=== PATIENT | female | born 1945 | race Caucasian/White ===

== ENCOUNTER 2019-10-21 15:44 | Emergency (ER) | payer OTHER ==
[2019-10-21 16:55] LABS: Absolute Lymphocytes (CBC) 1.2 K/uL (0.7-4.9); Basophils % 0.8 % (0-1.3); Hematocrit 39.5 % (36.0-45.0); MPV 7.8 fL (7.6-11.3); RBC Red Blood Cell Count 4.62 M/uL (3.86-4.86)
[2019-10-21] MEDS ORDERED: MORPHINE 4 MG/ML SYR ONE (16:57)
[2019-10-21] MEDS ORDERED: ONDANSETRON 4 MG/2 ML VIAL ONE (16:57)
[2019-10-21] MEDS ORDERED: NA CHLORIDE 0.9% 500 ML ONE (16:57)
[2019-10-21 17:08] LABS: Albumin 3.6 g/dL (3.4-5.0); Bilirubin Direct 0.1 mg/dL (0-0.2); Bilirubin Total 0.6 mg/dL (0.2-1.0); Potassium 4.2 mmol/L (3.5-5.1); Protein, Total 6.8 g/dL (6.4-8.2)
[2019-10-21] MEDS ORDERED: METHYLPREDNISOLONE 125 MG INJ ONE (17:20)
[2019-10-21] MEDS ORDERED: DIPHENHYDRAMINE 50 MG/ML VIAL ONE (17:21)
--- NOTE | 2019-10-21 18:16 | RAD REPORT ---
EXAM DESCRIPTION: CT - Abdomen Pelvis W Contrast - 10/21/2019 5:44 pm CLINICAL HISTORY: Abdominal pain COMPARISON: none. TECHNIQUE: Computed axial tomography of the abdomen pelvis was obtained. 100 cc Isovue-300 was admin istered intravenously. Oral contrast was not requested which limits evaluation of bowel. All CT scans are performed using dose optimization technique as appropriate and may include automated exposure control or mA/KV adjustment according to patient size. FINDINGS: Small gallstones are suspected. Gallbladder wall thickening is not noted 6 x 2.5 x 5 centimeter heterogeneous structure is present within the left rectus abdominis muscle wit hin the upper abdomen The liver, spleen, pancreas, and adrenals appear unremarkable. 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 Left kidney is unremarkabl e. Diverticula stem from the colon. Minimal stranding adjacent to the sigmoid colon Ill-defined areas of increased density are present within the subcutaneous tissues of the pelvis with small amount of air. Ventral hernia repair is noted IMPRESSION: Ventral hernia repair. Ill-defined increased density and small amount of air within the anterior subcutaneous tissue of the pelvis likely inflammation 6 x 2.5 x 5 centimeter heterogeneous structure is present within the left rectus abdominis muscle wit hin the upper abdomen probably a hematoma. Follow-up ultrasound in 1 week would be helpful to assess stability/resolution Probable cholelithiasis without cholecystitis Minimal sigmoid diverticulitis
--- NOTE | 2019-10-21 18:45 | ER ---
Nurse's Notes [facility] Name: Teri Bennett Age: 74 yrs Sex: Female : 1945 Arrival Date: 10/21/2019 Time: 15:54 Bed 5 Private MD: Diagnosis: Diverticulitis of large intestine without perforation or abscess without bleeding;Hematoma left rectus abdominus mucle Presentation: 10/21 16:02 Presenting complaint: Had hernia repair 10/10, c/o left upper abdominal pain x 2 days. hb Transition of care: patient was not received from another setting of care. Onset of symptoms was October 20, 2019. Risk Assessment: Do you want to hurt yourself or someone else? Patient reports no desire to harm self or others. Initial Sepsis Screen: Does the patient meet any 2 criteria? No. Patient's initial sepsis screen is negative. Does the patient have a suspected source of infection? No. Patient's initial sepsis screen is negative. Care prior to arrival: None. 16:02 Method Of Arrival: Ambulatory hb 16:02 Acuity: SHERITA 3 hb Triage Assessment: 16:10 General: Appears in no apparent distress. uncomfortable, Behavior is cooperative, bp appropriate for age, anxious. Pain: Complains of pain in left upper quadrant. EENT: No deficits noted. Neuro: No deficits noted. Cardiovascular: No deficits noted. Respiratory: No deficits noted. GI: Reports upper abdominal pain. : No signs and/or symptoms were reported regarding the genitourinary system. Derm: No deficits noted. Musculoskeletal: No deficits noted. Historical: - Allergies: 16:02 Aspirin; hb 16:02 PENICILLINS; hb 16:02 Macrobid; hb 16:02 Sulfa (Sulfonamide Antibiotics); hb - PSHx: 16:02 Hernia repair; Veins - legs; Hysterectomy; Wrist - left; hand - Left; Uvula; hb Tonsillectomy; - Immunization history:: Adult Immunizations up to date. - Social history:: Smoking status: Patient/guardian denies using tobacco. - Ebola Screening: : No symptoms or risks identified at this time. Screenin:25 Abuse screen: Denies threats or abuse. Denies injuries from another. Nutritional bp screening: No deficits noted. Tuberculosis screening: No symptoms or risk factors identified. Fall Risk None identified. Assessment: 16:10 General: SEE TRIAGE NOTE. bp 17:00 Reassessment: CT PENDING, IVF INFUSING. bp 18:04 Reassessment: PT RETURNED FROM CT. bp 19:00 Reassessment: D/C ON HOLD FOR ABX COMPLETION. PRESCRIPTIONS GIVEN TO FAMILY IN ADVANCE bp OF D/C. 19:28 Reassessment: PT D/C HOME AMBULATORY WITH FAMILY, DX WITH DIVERTICULITIS. bp Vital Signs: 16:00 BP 116 / 81; Pulse 83; Resp 16; Temp 98.2; Pulse Ox 100% on R/A; Weight 88.45 kg; hb Height 5 ft. 5 in. (165.10 cm); Pain 8/10; 17:00 BP 112 / 57; Pulse 53; Resp 18; Pulse Ox 100% ; bp 18:00 BP 120 / 65; Pulse 59; Resp 16; Pulse Ox 99% ; bp 19:00 BP 112 / 64; Pulse 50; Resp 16; Temp 98.3; Pulse Ox 95% ; bp 16:00 Body Mass Index 32.45 (88.45 kg, 165.10 cm) hb ED Course: 15:54 Patient arrived in ED. am2 16:01 Arm band placed on. hb 16:03 Triage completed. hb 16:03 Karan Coley NP is PHCP. pm1 16:03 Jhonny Lau MD is Attending Physician. pm1 16:13 Parker Poole, CARLEEN is Primary Nurse. bp 16:22 Radiology exam delayed due to lab results not completed at this time. (BUN/Creatinine). mw3 16:25 Patient has correct armband on for positive identification. Bed in low position. Call bp light in reach. Side rails up X2. 16:39 Initial lab(s) drawn, by wv, sent to lab. Inserted saline lock: 20 gauge in left tr5 antecubital area, using aseptic technique. 17:44 CT Abd/Pelvis - IV Contrast Only In Process Unspecified. EDMS 19:29 No provider procedures requiring assistance completed. IV discontinued, intact, bp bleeding controlled, No redness/swelling at site. Pressure dressing applied. Administered Medications: 17:10 Drug: NS 0.9% 500 ml Route: IV; Rate: bolus; Site: left antecubital; tr5 19:21 Follow up: IV Status: Completed infusion; IV Intake: 500ml bp 17:10 Drug: morphine 4 mg {Note: RASS:0.} Route: IVP; Site: left antecubital; tr5 19:20 Follow up: Response: Pain is decreased bp 17:11 Drug: Zofran 4 mg Route: IVP; Site: left antecubital; tr5 19:21 Follow up: Response: No adverse reaction bp 17:23 Drug: SOLU-Medrol 125 mg Route: IVP; Site: left antecubital; tr5 19:21 Follow up: Response: No adverse reaction bp 17:24 Drug: Benadryl 12.5 mg Route: IVP; Site: left antecubital; tr5 19:21 Follow up: Response: No adverse reaction bp 19:00 Drug: LevaQUIN 750 mg Route: PO; bp 19:30 Follow up: Response: No adverse reaction bp 19:00 Drug: Flagyl 500 mg Volume: 100 ml; Route: IVPB; Rate: 200 ml/hr; Infused Over: 30 bp mins; Site: left antecubital; 19:30 Follow up: IV Status: Completed infusion; IV Intake: 100ml bp 19:00 Drug: morphine 2 mg Route: IVP; Site: left antecubital; bp 19:30 Follow up: Response: Pain is decreased bp Intake: 19:21 IV: 500ml; Total: 500ml. bp 19:30 IV: 100ml; Total: 600ml. bp Outcome: 18:45 Discharge ordered by MD. pm1 19:29 Discharged to home ambulatory, with family. bp 19:29 Condition: stable 19:29 Discharge instructions given to patient, Instructed on discharge instructions, follow up and referral plans. medication usage, Demonstrated understanding of instructions, follow-up care, medications, Prescriptions given X 3. 19:38 Patient left the ED. bp Signatures: Dispatcher [employer] EDMS Karan Coley NP MANAGER OF SALES pm1 Cindy Grant RN RN hb Moreno, Amanda am2 Parker Poole RN RN bp Willis, Michelle mw3 Fidel Salinas RN RN tr5
--- NOTE | 2019-10-21 18:46 | EDPHYS ---
Physician Documentation [facility] Name: Teri Bennett Age: 74 yrs Sex: Female : 1945 Arrival Date: 10/21/2019 Time: 15:54 Bed 5 Private MD: ED Physician Jhonny Lau HPI: 10/21 16:39 This 74 yrs old Female presents to ER via Ambulatory with complaints of pm1 Abdominal Pain. 16:39 The patient presents with abdominal pain in the left upper quadrant, in the left lower pm1 quadrant. Onset: The symptoms/episode began/occurred 2 day(s) ago. The symptoms do not radiate. Associated signs and symptoms: Pertinent negatives: nausea, vomiting, and diarrhea, chest pain, constipation, dysuria, fever, shortness of breath. The symptoms are described as sharp. Modifying factors: the symptoms are aggravated by coughing, touching the area. Severity of pain: in the emergency department the pain is actually worse. The patient has not experienced similar symptoms in the past. The patient has been recently seen by a physician: Laproscopic hernia repair on 10/10 in [place], [place]. Historical: - Allergies: 16:02 Aspirin; hb 16:02 PENICILLINS; hb 16:02 Macrobid; hb 16:02 Sulfa (Sulfonamide Antibiotics); hb - PSHx: 16:02 Hernia repair; Veins - legs; Hysterectomy; Wrist - left; hand - Left; Uvula; hb Tonsillectomy; - Immunization history:: Adult Immunizations up to date. - Social history:: Smoking status: Patient/guardian denies using tobacco. - Ebola Screening: : No symptoms or risks identified at this time. ROS: 16:40 Constitutional: Negative for fever, chills, and weight loss, Eyes: Negative for injury, pm1 pain, redness, and discharge, ENT: Negative for injury, pain, and discharge, Neck: Negative for injury, pain, and swelling, Cardiovascular: Negative for chest pain, palpitations, and edema, Respiratory: Negative for shortness of breath, cough, wheezing, and pleuritic chest pain. 16:40 Back: Negative for injury and pain, : Negative for injury, bleeding, discharge, and swelling, MS/Extremity: Negative for injury and deformity, Skin: Negative for injury, rash, and discoloration, Neuro: Negative for headache, weakness, numbness, tingling, and seizure. 16:40 Abdomen/GI: Positive for abdominal pain, Negative for nausea, vomiting, and diarrhea, constipation. Exam: 16:40 Constitutional: This is a well developed, well nourished patient who is awake, alert, pm1 and in no acute distress. Head/Face: Normocephalic, atraumatic. Neck: Trachea midline, no thyromegaly or masses palpated, and no cervical lymphadenopathy. Supple, full range of motion without nuchal rigidity, or vertebral point tenderness. No Meningismus. Chest/axilla: Normal chest wall appearance and motion. Nontender with no deformity. No lesions are appreciated. Cardiovascular: Regular rate and rhythm with a normal S1 and S2. No gallops, murmurs, or rubs. Normal PMI, no JVD. No pulse deficits. Respiratory: Lungs have equal breath sounds bilaterally, clear to auscultation and percussion. No rales, rhonchi or wheezes noted. No increased work of breathing, no retractions or nasal flaring. 16:40 Back: No spinal tenderness. No costovertebral tenderness. Full range of motion. Skin: Warm, dry with normal turgor. Normal color with no rashes, no lesions, and no evidence of cellulitis. 16:40 MS/ Extremity: Pulses equal, no cyanosis. Neurovascular intact. Full, normal range of motion. 16:40 Abdomen/GI: Inspection: obese Bowel sounds: normal, Palpation: soft, mild abdominal tenderness, in the left upper quadrant and left lower quadrant, mass, is not appreciated, rebound tenderness, is not appreciated. 16:40 Neuro: Orientation: is normal, Motor: is normal, moves all fours. Vital Signs: 16:00 BP 116 / 81; Pulse 83; Resp 16; Temp 98.2; Pulse Ox 100% on R/A; Weight 88.45 kg; hb Height 5 ft. 5 in. (165.10 cm); Pain 8/10; 17:00 BP 112 / 57; Pulse 53; Resp 18; Pulse Ox 100% ; bp 18:00 BP 120 / 65; Pulse 59; Resp 16; Pulse Ox 99% ; bp 19:00 BP 112 / 64; Pulse 50; Resp 16; Temp 98.3; Pulse Ox 95% ; bp 16:00 Body Mass Index 32.45 (88.45 kg, 165.10 cm) hb MDM: 16:04 Patient medically screened. pm1 16:41 Data reviewed: vital signs. Data interpreted: Pulse oximetry: on room air is 100 %. pm1 Interpretation: normal. 18:43 Counseling: I had a detailed discussion with the patient and/or guardian regarding: the pm1 historical points, exam findings, and any diagnostic results supporting the discharge/admit diagnosis, lab results, radiology results, the need for outpatient follow up, to return to the emergency department if symptoms worsen or persist or if there are any questions or concerns that arise at home. 10/21 16:17 Order name: Basic Metabolic Panel; Complete Time: 17:08 pm1 10/21 16:17 Order name: CBC with Diff; Complete Time: 17:07 pm1 10/21 16:17 Order name: Creatinine for Radiology; Complete Time: 17:17 pm1 10/21 16:17 Order name: Hepatic Function; Complete Time: 17:08 pm1 10/21 16:17 Order name: Lipase; Complete Time: 17:08 pm1 10/21 16:17 Order name: CT Abd/Pelvis - IV Contrast Only; Complete Time: 18:27 pm1 10/21 16:17 Order name: IV Saline Lock; Complete Time: 16:44 pm1 10/21 16:17 Order name: Labs collected and sent; Complete Time: 16:44 pm1 Administered Medications: 17:10 Drug: NS 0.9% 500 ml Route: IV; Rate: bolus; Site: left antecubital; tr5 19:21 Follow up: IV Status: Completed infusion; IV Intake: 500ml bp 17:10 Drug: morphine 4 mg {Note: RASS:0.} Route: IVP; Site: left antecubital; tr5 19:20 Follow up: Response: Pain is decreased bp 17:11 Drug: Zofran 4 mg Route: IVP; Site: left antecubital; tr5 19:21 Follow up: Response: No adverse reaction bp 17:23 Drug: SOLU-Medrol 125 mg Route: IVP; Site: left antecubital; tr5 19:21 Follow up: Response: No adverse reaction bp 17:24 Drug: Benadryl 12.5 mg Route: IVP; Site: left antecubital; tr5 19:21 Follow up: Response: No adverse reaction bp 19:00 Drug: LevaQUIN 750 mg Route: PO; bp 19:30 Follow up: Response: No adverse reaction bp 19:00 Drug: Flagyl 500 mg Volume: 100 ml; Route: IVPB; Rate: 200 ml/hr; Infused Over: 30 bp mins; Site: left antecubital; 19:30 Follow up: IV Status: Completed infusion; IV Intake: 100ml bp 19:00 Drug: morphine 2 mg Route: IVP; Site: left antecubital; bp 19:30 Follow up: Response: Pain is decreased bp Disposition: 10/21/19 18:45 Discharged to Home. Impression: Diverticulitis of large intestine without perforation or abscess without bleeding, Hematoma left rectus abdominus mucle. - Condition is Stable. - Discharge Instructions: Clear Liquid Diet, Adult, Diverticulitis, Hematoma. - Prescriptions for Flagyl 500 mg Oral Tablet - take 1 tablet by ORAL route every 6 hours for 10 days; 40 tablet. Levaquin 750 mg Oral Tablet - take 1 tablet by ORAL route once daily for 10 days; 10 tablet. Tramadol 50 mg Oral Tablet - take 1 tablet by ORAL route every 8 hours As needed as needed; 15 tablet. - Medication Reconciliation Form, Thank You Letter, Antibiotic Education, Prescription Opioid Use form. - Follow up: Emergency Department; When: As needed; Reason: Worsening of condition. Follow up: Private Physician; When: 2 - 3 days; Reason: Recheck today's complaints, Continuance of care, Re-evaluation by your physician. - Problem is new. - Symptoms have improved. Addendum: 10/23/2019 07:39 Co-signature as Attending Physician, Jhonny Lau MD. r n Signatures: Dispatcher [employer] EDMS Jhonny Lau MD MD rn Marinas, Patrick, PEN RULER OPERATOR PEN RULER OPERATOR pm1 Cindy Grant RN RN Parker Winter RN RN Fidel Phelps RN RN tr5 Corrections: (The following items were deleted from the chart) 10/21 19:38 18:45 10/21/2019 18:45 Discharged to Home. Impression: Diverticulitis of large bp intestine without perforation or abscess without bleeding; Hematoma left rectus abdominus mucle. Condition is Stable. Forms are Medication Reconciliation Form, Thank You Letter, Antibiotic Education, Prescription Opioid Use. Follow up: Emergency Department; When: As needed; Reason: Worsening of condition. Follow up: Private Physician; When: 2 - 3 days; Reason: Recheck today's complaints, Continuance of care, Re-evaluation by your physician. Problem is new. Symptoms have improved. pm1
[2019-10-21] MEDS ORDERED: levoFLOXacin 750 MG TAB ONE (18:56)
[2019-10-21] MEDS ORDERED: METRONIDAZOLE 500mg IVPB 500 MG/100 ML BAG IV ONE (18:57)
[2019-10-21] MEDS ORDERED: MORPHINE 2 MG/ML SYR ONE (18:57)
[2019-10-21 20:01] VITALS: BP 112/64; TEMP 98.3; O2SAT 95
== END 2019-10-21 19:38 | disposition home or self-care (01) ==
LOC: ER 15:44
DX: K57.32 Diverticulitis of large intestine without perforation or abscess without bleeding (principal); S30.1XXA Contusion of abdominal wall, initial encounter; Z88.0 Allergy status to penicillin; Z88.2 Allergy status to sulfonamides; Z88.3 Allergy status to other anti-infective agents; Z88.6 Allergy status to analgesic agent
CPT/HCPCS: 96365; 96361; 85025; 80048; 36415; 80076; 83690; 74177; 96375; 99284; Q9967; J1200; J2270; J7040; J2930; J2405